=== PATIENT | female | born 1935 | race African-American/Black ===

== ENCOUNTER 2016-03-10 20:14 | Emergency (ER) | payer OTHER ==
[2016-03-10 20:29] VITALS: BP 103/62; PULSE 69; RESP 16; TEMP 97.5; O2SAT 95
--- NOTE | 2016-03-10 20:43 | EDPHY ---
H & P Time Seen by Provider: 03/10/16 20:33 HPI/ROS: Chief complaint. Low back pain HPI. A 80-year-old female low back pain that started this morning. No trauma. She got up and stretched and had sudden onset of bilateral low back pain. Comes in waves. Does not radiate down into her legs. She has no leg weakness, altered sensation, bowel or bladder symptoms. Symptoms are worse with movement. She has had low back pain in the past ROS Constitutional. no fever/chills, no weakness Eyes. no problems with vision ENT. no sore throat, no nasal drainage Cardiovascular. no chest pain Respiratory. no shortness of breath, no cough Abdominal. no abdominal pain, no nausea/vomiting, no diarrhea . no problems urinating MS. Low back pain Skin. no rash Lymph. no swollen glands Neuro. no headache, no dizziness, no difficulty walking or with speech Past Medical/Surgical History: Pre diabetes, , orthopedic surgeries, thyroid nodule Social History: Single, nonsmoker, no alcohol Smoking Status: Never smoked Physical Exam: General Appearance: Alert well-developed female mild distress vital signs are stable Eyes: Pupils equal and round no pallor or injection. ENT, Mouth: Mucous membranes are moist. Respiratory: There are no retractions, lungs are clear to auscultation. Cardiovascular: Regular rate and rhythm. Gastrointestinal: Abdomen is soft and nontender, no masses, bowel sounds normal. Neurological: Awake and alert, sensory and motor exams grossly normal. Deep tendon reflexes normal. Straight leg raising normal. Strength and sensation are normal Skin: Warm and dry, no rashes. Musculoskeletal: Tenderness across the lumbar area without particular tenderness over the lumbar spine. Extremities symmetrical, full range of motion. Psychiatric: Patient is oriented X 3, there is no agitation. Constitutional: Initial Vital Signs Temperature (C) 36.4 C 03/10/16 20:21 Heart Rate 69 03/10/16 20:21 Respiratory Rate 16 03/10/16 20:21 Blood Pressure 103/62 03/10/16 20:21 O2 Sat (%) 95 03/10/16 20:21 O2 Delivery Mode Room Air Allergies/Adverse Reactions: Penicillins Allergy (Intermediate, Verified 03/10/16 20:17) HIVES/SKIN RASH Sulfa (Sulfonamide Antibiotics) Allergy (Unknown, Verified 03/10/16 20:17) oxycodone Allergy (Verified 03/10/16 20:18) Home Medications: Medication Instructions Recorded Aspirin 81mg 09/03/09 Lipitor 20 mg 09/03/09 CALCIUM 10/31/13 Chlorthalidone 10/31/13 ENALAPRIL MALEATE 10/31/13 Folic Acid 10/31/13 Metformin Sr 10/31/13 Methotrexate 10/31/13 Multivitamin 10/31/13 Hydrocodone/APAP 5/325 [[place] 1 each PO Q4-6PRN PRN #10 tab 03/10/16 5/325 (*)] Medical Decision Making - Diagnostics Imaging: Lumbar spine x-ray interpreted by me as negative for fracture ED Course/Re-evaluation: Patient is given Vicodin orally Re-evaluation at 9:30 p.m. patient and I discussed x-ray findings. She remains stable Urinalysis is normal. Re-evaluation again at 11:05 p.m.. Patient is stable. The patient and I discussed x-ray findings urinalysis. We discussed treatment plan including criteria for return and importance of follow-up further evaluation. She expresses understanding and agreement Differential Diagnosis: I considered compression fracture, urinary tract infection, AAA though the patient does not have any abdominal pain and has pulses that are symmetrical. - Data Points Laboratory Results: 03/10/16 22:15 Urine Color YELLOW Urine Appearance CLEAR Urine pH 5.0 (5.0-7.5) Ur Specific [place] 1.011 (1.002-1.030) Urine Protein NEGATIVE (NEGATIVE) Urine Ketones NEGATIVE (NEGATIVE) Urine Blood NEGATIVE (NEGATIVE) Urine Nitrate NEGATIVE (NEGATIVE) Urine Bilirubin NEGATIVE (NEGATIVE) Urine Urobilinogen NEGATIVE EU (0.2-1.0) Ur Leukocyte Esterase TRACE H (NEGATIVE) Urine RBC 1-3 /hpf (0-3) Urine WBC 1-3 /hpf (0-3) Ur Epithelial Cells TRACE /lpf (NONE-1+) Urine Bacteria TRACE H /hpf (NONE SEEN) Ur Culture Indicated? INDICATED H (NI) Urine Glucose NEGATIVE (NEGATIVE) Medications Given: Discontinued Medications Acetaminophen/Hydrocodone Bitart ([place] 5/325) 1 tab PO EDNOW ONE Stop: 03/10/16 20:52 Last Admin: 03/10/16 21:12 Dose: 1 tab Departure - Departure Disposition: Home, Routine, Self-Care Clinical Impression: Low back pain Qualifiers: Chronicity: acute Back pain laterality: bilateral Sciatica presence: without sciatica Qualifier Code: (M54.5) Low back pain Condition: Good Instructions: Acute Low Back Pain (ED) Additional Instructions: Easy activity. Heat to your back. Hydrocodone for discomfort every 4-6 hours. Return for fever, leg weakness, bowel or bladder symptoms. Recheck with Dr. Wesley in 2 days if not improving Referrals: Rip Wesley MD [Primary Care Provider] - 2-3 days, if not improved Prescriptions: Hydrocodone/APAP 5/325 [[place] 5/325 (*)] 1 each PO Q4-6PRN PRN #10 tab PRN Reason: Pain, Moderate
[2016-03-10] MEDS ORDERED: HYDROCODONE/APAP 5/325 TAB PO ONE (20:51)
--- NOTE | 2016-03-10 22:04 | DX ---
Lumbar Spine (AP and Lateral) Clinical Indications: Low back pain. Findings: Alignment is normal and no fractures are seen. The intervertebral disks have normal heigh t, and minimal degenerative change is present. Mild atherosclerotic disease of the aorta is present. Impression: Minimal degenerative change for age.
[2016-03-10 22:24] LABS: COLOR YELLOW; LEUKOCYTE ESTERASE,URINE TRACE (NEGATIVE); NITRITE,URINE NEGATIVE (NEGATIVE)
[2016-03-10 22:32] LABS: BACTERIA TRACE /hpf (NONE SEEN)
[2016-03-10] MEDS ORDERED: HYDROCOD/APAP 5/325 PREPACK#6 BTL TAKEHOME ONE (23:21)
== END 2016-03-10 23:43 | disposition home or self-care (01) ==
DX: M54.5 Low back pain (principal); Z79.82 Long term (current) use of aspirin

== ENCOUNTER → 2017-02-19 | Outpatient (CLI) | payer OTHER | LOC: BMCIMAGING 12:39 | PROVIDERS: ATTEND Internal Medicine Endocrinology, Diabetes & Metabolism | DX: E04.2 Nontoxic multinodular goiter (principal) | CPT/HCPCS: 76536-PO ==